=== PATIENT | male | born 1975 | race Caucasian/White ===

== ENCOUNTER 2022-06-09 11:44 | Outpatient (CLI) | payer BC, SELFPAY ==
--- OUTSIDE RECORDS SUMMARY | 2022-06-09 11:54 | XMS_ITS | Encounter Summary ---
:1975 Author Organization [facility] Address [address] [place] [address] Care Team Providers Name Role Phone Unavailable Primary Care Provider Unavailable Encounter Details Date Type Department Care Team Description 12/04/2011 Hospital Encounter HX [facility] Carlos Velasco M.D. [address], [place] [address] (Wo rk) Social History Tobacco Use Types Packs/Day Years Used Date Smoking Tobacco: Never Assessed Sex Assigned at Date Recorded Not on file documented as of this encounter Plan of Treatment Not on filedocumented as of this encounter Procedures Procedure Name Priority Date/Time Associated Comments Diagnosis HX DRUG SCREEN Routine 12/04/2011 9:41 AM Results for this COLLECTION CDT procedure are i n the results section. documented in this encounter Results HX DRUG SCREEN COLLECTION (12/04/2011 9:41 AM CDT) [facility] Method Time Signature HXU Drug See Report POWERCHART Screen Specimen (Source) Anatomical Collection Method Collection Time Re ceived Time Location / / Volume Laterality Urine 12/04/2011 9:41 AM CDT Carlos Velasco M.D. LAB HISTORICAL ORDERS Performing Organization Address City/State/ZIP Code Phon e Number POWERCHART documented in this encounter Visit Diagnoses Not on filedocumented in this encounter
--- OUTSIDE RECORDS SUMMARY | 2022-06-09 11:54 | XMS_ITS | Clinical Summary ---
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 Resolved Problems Problem Noted Date Resolved Date Tear of left acetabular labrum 09/28/2017 9 Left hip impingement syndrome 09/28/2017 09/01/2018 Immunizations Name Administration Dates Next Due AMB Influenza, IIV3 (Age >=3 years)(Flu 06/14/2013, 06/07/20 10, 06/01/2009 Clinic Only) HepA-HepB (Twinrix) 05/02/2015, 11/26/2014, 10/22/2014 Influenza, IIV3 (Age >=3 years) 08/04/2012, 07/31/2011, 06/16 Influenza, IIV4 07/01/2018, 07/14/2016, 05/02/2015 Influenza, IIV4 (=>6mos) MDV 07/20/2017 Pneumococcal conj 13-Valent (Prevnar 13) 07/20/2017 Tdap 05/02/2015, 10/14/2005 Family History Medical History Relation Name Comments Good Health Daughter Diabetes Father Hyperlipidemia Father Hypertension Father Diabetes Maternal Grandmother Cancer-colon Mother Relation Name Status Comments Daughter Alive Father Alive Maternal Grandmother Mother Social History Tobacco Use Types Packs/Day Years Used Date Former Smoker Cigarettes 1 15 Smokeless Tobacco: Never Used Tobacco Cessation: Counseling Given: Yes Comments: 05/23 Alcohol Use Standard Drinks/Week Comments No 0 (1 standard drink = 0.6 oz pure alcoho l) x2 drinks a day Alcohol Habits Answer Date Recorded How often do you have a drink containing alcohol? Not asked How many drinks containing alcohol do you have on a Not aske d typical day when you are drinking? How often do you have six or more drinks on one Not asked occasion? Comment: x2 drinks a day 07/01/2018 Sex Assigned at Date Recorded Not on file Obstetrics History Last Filed Vital Signs Vital Sign Reading Time Taken Comments Blood Pressure 149/87 07/22/2018 2:12 PM ISOTOPE HYDROLOGIST Pulse 67 07/22/2018 2:12 PM ISOTOPE HYDROLOGIST Temperature 35.7 ??C (96.2 ??F) 07/22/2018 12:37 PM ISOTOPE HYDROLOGIST Respiratory Rate 16 07/22/2018 2:12 PM ISOTOPE HYDROLOGIST Oxygen Saturation 99% 07/22/2018 2:12 PM ISOTOPE HYDROLOGIST Inhaled Oxygen Concentration - - Weight 122.9 kg (271 lb) 07/22/2018 6:41 AM ISOTOPE HYDROLOGIST Height 177.8 cm (5' 10) 07/22/2018 6:41 AM ISOTOPE HYDROLOGIST Body Mass Index 38.88 07/22/2018 6:41 AM ISOTOPE HYDROLOGIST Plan of Treatment Health Maintenance Due Date Last Done Comments COVID-19 vaccine series (#1) 1975 Hepatitis C screening for age 0703/06/1994 18-79 Depression screening for age 12+ 08/30/2018 08/30/2017 BMI (ht and wt on same day) for 07/01/2019 07/01/2018, 09/16, age 18+ 09/20/2017, Additional history exists Colonoscopy through age 75 2021 Lipids for age 45-75 2021 06/29/2008 Influenza for age 9-49 04/16/2022 07/01/2018, 07/20/2017, 07/14/2016, Additional history exists Tetanus booster 05/02/2025 05/02/2015, 11/12/2009 (Completed outside of [facility]), 10/14/2005 Tdap Completed 05/02/2015, 10/14/2005 Medical Devices Implanted Type Area Doweling Machine Operator Device Shelf Model / Identifier Expiration Date Ser ial / Lot Ancr Sut [place] Tt - [id number] Left: Hip [place] 06/26/2021 [id number] / Implanted: Qty: 3 on 07/22/2018 by Marvin Quiroz MD at [facility] [employer] / [id number] Results Not on filefrom Last 3 Months Insurance Payer Benefit Plan / Subscriber ID Effective Dates Phone Addre ss Type Group BLUE CROSS BLUE CROSS OF [id number] 2020-Pres [id number] [place] [address] Advance Directives Latest Code Status on File Code Status Date Activated Date Inactivated Comments Full Code 07/22/2018 6:11 AM 07/22/2018 4:52 PM Full Code 07/03/2008 4:15 PM 07/04/2008 2:46 PM Care Teams Farmworker [employer] Relationship Specialty Start Date End Date Puneet Francois MD PCP - General 04/19/08
--- OUTSIDE RECORDS SUMMARY | 2022-06-09 11:54 | XMS_ITS | Encounter Summary ---
:1975 Author Organization [facility] Address [address] [place] [address] Care Team Providers Name Role Phone Unavailable Primary Care Provider Unavailable Encounter Details Date Type Department Care Team Description 10/20/2010 Hospital Encounter HX NO MAPPING Vic Tillman M.D. [address] [place] [address] (Wo rk) Social History Tobacco Use Types Packs/Day Years Used Date Smoking Tobacco: Never Assessed Sex Assigned at Date Recorded Not on file documented as of this encounter Plan of Treatment Not on filedocumented as of this encounter Visit Diagnoses Not on filedocumented in this encounter
--- OUTSIDE RECORDS SUMMARY | 2022-06-09 11:54 | XMS_ITS | Encounter Summary ---
:1975 Author Organization [facility] Address [address] [place] [address] Care Team Providers Name Role Phone Unavailable Primary Care Provider Unavailable Encounter Details Date Type Department Care Team Description 09/21/2010 Hospital Encounter HX NO MAPPING Vic Tillman M.D. [address] [place] [address] (Wo rk) Social History Tobacco Use Types Packs/Day Years Used Date Smoking Tobacco: Never Assessed Sex Assigned at Date Recorded Not on file documented as of this encounter Plan of Treatment Not on filedocumented as of this encounter Visit Diagnoses Not on filedocumented in this encounter
--- OUTSIDE RECORDS SUMMARY | 2022-06-09 11:54 | XMS_ITS | Encounter Summary ---
:1975 [address] [facility] Address [address] [place] [address] Care Team Providers Name Role Phone Unavailable Primary Care Provider Unavailable Encounter Details Date Type Department Care Team Description 12/10/2006 Hospital [facility] Abena Garcia M.D. [address] [place], [place] [address] (Wo rk) Social History Tobacco Use Types Packs/Day Years Used Date Smoking Tobacco: Never Assessed Sex Assigned at Date Recorded Not on file documented as of this encounter Plan of Treatment Not on filedocumented as of this encounter Visit Diagnoses Not on filedocumented in this encounter
--- OUTSIDE RECORDS SUMMARY | 2022-06-09 11:54 | XMS_ITS | Encounter Summary ---
:1975 Author Organization [facility] Address [address] [place] [address] Care Team Providers Name Role Phone Elsewhere, Pcp Primary Care Provider Unavailable Reason for Referral Specialty Diagnoses / Procedures Referred By Contact Refer red To Contact [facility] [place] [facility] [address] [place] [address] Referral ID Status Reason Start Date Expiration Date Visits Requ ested Visits Authorized Encounter Details Date Type Department Care Team Description 11/20/2020 Immunization Department of Kelvin Stewart For COVID-19 Medicine, [place] M.D. Vaccine Immunization Professional Building, [address] (Primary Dx) in [address] [address] [place] [address] [phone] Social History Tobacco Use Types Packs/Day Years Used Date Smoking Tobacco: Former Sex Assigned at Date Recorded Not on file documented as of this encounter Plan of Treatment Scheduled Referrals Name Type Priority Associated Diagnoses Order S chedule Covid immunization Outpatient Referral Routine Encounter For E xpected: office visit Covid-19 Vaccine 12/11/2020, Subsequent; 21 days Immunization Expires: 11/21/2023 documented as of this encounter Visit Diagnoses Diagnosis Encounter For COVID-19 Vaccine Immunizat ion - Primary documented in this encounter Care Teams Commercial Artist Relationship Specialty Start Date End Date Elsewhere, Pcp PCP - General 10/17/18 documented as of this encounter
--- OUTSIDE RECORDS SUMMARY | 2022-06-09 11:54 | XMS_ITS | Encounter Summary ---
:1975 Author Organization [facility] Address [address] [place] [address] Care Team Providers Name Role Phone Unavailable Primary Care Provider Unavailable Encounter Details Date Type Department Care Team Description 12/16/2006 [facility] M.[facility]. [address] [place], [place] [address] (Wo rk) Social History Tobacco Use Types Packs/Day Years Used Date Smoking Tobacco: Never Assessed Sex Assigned at Date Recorded Not on file documented as of this encounter Plan of Treatment Not on filedocumented as of this encounter Visit Diagnoses Not on filedocumented in this encounter
--- OUTSIDE RECORDS SUMMARY | 2022-06-09 11:54 | XMS_ITS | Encounter Summary ---
:1975 Author Organization [facility] Address [address] [place] [address] Care Team Providers Name Role Phone Unavailable Primary Care Provider Unavailable Encounter Details Date Type Department Care Team Description 03/08/2006 Hospital Encounter [facility] [address] [place] [address] (Wo rk) Social History Tobacco Use Types Packs/Day Years Used Date Smoking Tobacco: Never Assessed Sex Assigned at Date Recorded Not on file documented as of this encounter Plan of Treatment Not on filedocumented as of this encounter Visit Diagnoses Not on filedocumented in this encounter
--- OUTSIDE RECORDS SUMMARY | 2022-06-09 11:54 | XMS_ITS | Encounter Summary ---
:1975 Author Organization [facility] Address [address] [place] [address] Care Team Providers Name Role Phone Unavailable Primary Care Provider Unavailable Encounter Details Date Type Department Care Team Description 03/10/2012 Hospital Encounter [facility]X [facility] Carlos Velasco M.D. [address] [place] [address] (Wo rk) Social History Tobacco Use Types Packs/Day Years Used Date Smoking Tobacco: Never Assessed Sex Assigned at Date Recorded Not on file documented as of this encounter Plan of Treatment Not on filedocumented as of this encounter Procedures Procedure Name Priority Date/Time Associated Diagnosis Comme nts HXDRUG COLLECTION, Routine 03/10/2012 4:16 PM Res ults for this URINE CDT procedure are i n the results section. documented in this encounter Results HXDRUG COLLECTION, URINE (03/10/2012 4:16 PM CDT) [facility] gist Method Time Signature HXU Drug See Report POWERCHART Screen Specimen (Source) Anatomical Collection Method Collection Time Re ceived Time Location / / Volume Laterality Urine 03/10/2012 4:16 PM CDT Carlos Velasco M.D. LAB HISTORICAL ORDERS Performing Organization Address City/State/ZIP Code Phon e Number POWERCHART documented in this encounter Visit Diagnoses Not on filedocumented in this encounter
--- OUTSIDE RECORDS SUMMARY | 2022-06-09 11:54 | XMS_ITS | Encounter Summary ---
:1975 Author Organization [facility] Address [address] [place] [address] Care Team Providers Name Role Phone Unavailable Primary Care Provider Unavailable Encounter Details Date Type Department Care Team Description 06/08/2013 Hospital Encounter HX [facility] Mable Stovall ra, M.D., M.P.H. [address] [place] [phone] (Wo rk) Social History Tobacco Use Types Packs/Day Years Used Date Smoking Tobacco: Never Assessed Sex Assigned at Date Recorded Not on file documented as of this encounter Last Filed Vital Signs Vital Sign Reading Time Taken Comments Blood Pressure 122/60 06/08/2013 8:23 AM CDT Pulse 84 06/08/2013 8:23 AM CDT Temperature - - Respiratory Rate 18 06/08/2013 8:23 AM CDT Oxygen Saturation - - Inhaled Oxygen Concentration - - Weight 109 kg (239 lb 13.8 oz) 06/08/2013 8:23 AM CDT Height 180 cm (5' 10.87) 06/08/2013 8:23 AM CDT Body Mass Index 33.58 06/08/2013 8:23 AM CDT documented in this encounter Progress Notes Tara Stovall M.D., M.P.H. 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 EMPLOYER: [employer]. DATE OF INJURY: 05/23/2013 HISTORY OF PRESENT ILLNESS Mr. Courtney returns today for reevaluation of his injury to his left low back and buttock, which was producing symptoms of sciatica on his last clinic visit dated 05/25/2013. He states that since his last visit, his pain has almost completely resolved, and he feels that he is back to his baseline. He continues to have some occasional pain in his low back but states that this is not increased compared to his back pain prior to this most recent injury. Of note, Mr. Courtney does have a history of an L4-L5 diskectomy in 2007 due to disk herniation at this level. He states that since that time, he has hadchronic fluctuating low back pain and does do daily stretches. He presented to physical therapy for 1 visit, where he was evaluated and given additional stretches to do at home. He states that he has added these to his morning routine. He completed his burst and taper of prednisone approximately 3 days ago and feels that this significantly helped with his pain. His pain has not recurred since stopping this medication. He is not currently taking Flexeril as he felt that this made him too relaxed at night, and he was concerned that it was affecting his electrolyte levels. He is not taking any scheduled pain medication, however, states that last night, he did take 1 oxycodone as he overdid it at work. He reports that he has been doing his full job at work for the last 2 days as he feels that he isback to his normal self. Today, he desires to be released to return to full duty. He does question whether it would benefit him to wear a back brace and states that the question was posed from his workplace. He reports that after his previous surgery, he did have a discussion with the neurosurgeon about the use of a back brace, and the neurosurgeon discouraged the use of back brace as it causes the patient not to rely on their own muscle strength and actually causes decrease in muscle strength over time. He states, for that reason, he is nervous about wearing a back brace and wanted my input into this as well. Today, Mr. Courtney denies any numbness or tingling in his left leg or foot as was presentin his last visit. He states that the pain in his posterior leg is completely gone. He now reports mild pain in his left anterior leg, however, reports that this is not any different than his normal daily aches and pains due to his work. VITAL SIGNS Today, heart rate is 84, respirations 18, blood pressure 122/60, weight 108 kg, height 180 cm, BMI 33.58. PHYSICAL EXAMINATION GENERAL: Alert, oriented, pleasant man in no acute distress. SKIN: Evaluation of low back and legs shows no deformity, erythema, ecchymosis, or other skin abnormality. Patient does have a midline scar over the lumbar spine, well healed from his previous surgery. MUSCULOSKELETAL: Has 5/5 strength with knee flexion/extension, ankle dorsi- and plantar flexion, andextension of the great toe bilaterally. Patient is able to walk with normal tandem gait without ataxia. Single-leg stance is normal without hip drop on either side. BACK: Patient has full flexion and extension of the back without pain with these maneuvers. Percussion over the thoracic and lumbar spine does not produce any pain. Deep palpation over the lumbar paraspinal musculature bilaterally, as well as the gluteal musculature does not produce any pain. NEUROLOGIC: Has 2+ patellar and Achilles reflexes bilaterally. Equal sensation to light touch over the lower legs and feet bilaterally. IMPRESSION/REPORT/PLAN A 38-year-old employee for [employer] with resolved left gluteal muscle strain that had resulted in symptoms of sciatic. Based on the patient's rapid response to conservative care,that does reinforce that this injury was solely musculoskeletal and is not concerning for surgical in tervention. I agree with the recommendation of Mr. Courtney's previous surgeon against use of a back brace at this time. This injury was focused on his left gluteal musculature and his buttock rather than his back. It is important for Mr. Courtney to perform his daily exercises for stretching and strengthening of his back, and I feel that a back brace would hinder his normal movement and the muscle strength in his back. PLAN: 1. Mr. Courtney will be discharged from care at today's visit and released to return to work with no restrictions. Should he have recurrent injury, I would be happy to have his work site schedule anothervisit for reevaluation. 2. Encouraged Mr. Courtney to continue his daily stretches as recommended by his previous surgeon and provided in physical therapy during this course of injury care. 3. Encouraged Mr. Courtney to use heat and ice as needed instead of oral medications for pain and, at all times, to use good lifting and body mechanics to prevent further injury. Tara Stovall M.D./pos Electronically Signed By: TARA STOVALL MD On: 06/14/2013 03:11 PM Modified by and Electronically Signed by: TARA STOVALL MD On: 06/14/2013 03:11 PM Source: [facility] MHSDBILLY Document Id: [id number] documented in this encounter Miscellaneous Notes Miscellaneous - Ana Lopez RAlex - 06/08/2013 8:23 AM CDT Adult Radiation Protection Technician Intake/History Document Has Been Updated Adult Radiation Protection Technician Intake/History Entered On: 06/08/2013 8:30 CDT Performed On: 06/08/2013 8:23 CDT by ANA LOPEZ wage conciliator Chief Complaint : s/p back injury Peripheral Pulse Rate : 84 /min Respiratory Rate : 18 /min Heart Rhythm : Regular Systolic Blood Pressure : 122 mmHg Diastolic Blood Pressure : 60 mmHg NIBP Mean : 81 mmHg BP Location : Right upper extremity Height : 180 cm(Converted to: 5 ft 11 inch(es), 70.87 inch(es)) Actual Weight : 108.8 kg(Converted to: 239 lb 14 oz) Weight Source : Standing scale Dosing Weight Clinic : 108.8 kg Clinic BSA : 2.33 Body Mass Index : 33.58 kg/m2 ANA LOPEZ RN - 06/08/2013 8:23 CDT General Info Information Given By : Patient Preferred Communication Mode : Verbal Languages : French ANA LOPEZ RN - 06/08/2013 8:23 CDT Subjective Pain Symptoms : Yes ANA LOPEZ RN - 06/08/2013 8:23 CDT Pain Pain Assessment Grid Pain 1 Pain 2 Location : Upper leg Lower back Laterality : Left Bilateral Intensity : 3 2 Onset : Gradual Gradual Quality : Cramping Aching Pain Radiation : Yes (Comment: Pt. states radiation dependent on daily activity, may radiate throughleg or across. [ANA LOPEZ RN - 06/08/2013 8:23 CDT] ) Aggravating Factors : Movement Movement Alleviating Factors : Rest Rest ANA LOPEZ RN - 06/08/2013 8:23 CDT ANA LOPEZ - 06/08/2013 8:23 CDT Dependent Habits Tobacco Use/Currently Using : No Smoking Status : Former smoker ANA LOPEZ RN - 06/08/2013 8:23 CDT Caffeine Use Grid Caffeine Use : Current Type : Soft drinks, Tea Frequency : Daily Amount : 6 pack ANA LOPEZ - 06/08/2013 8:23 CDT Recreational Drug Use Grid Drug Use : None ANA LOPEZ - 06/08/2013 8:23 CDT Allergy (As Of: 06/08/2013 08:30:39 CDT) Allergies (Active) NKA Estimated Onset Date: Unspecified ; Created By: KIKO HAMMONDS; Reaction Status: Active ; Category: Drug ; Substance: NKA ; Type: Allergy ; Updated By: KIKO HAMMONDS; Reviewed Date: 05/25/2013 15:28CDT Source: [facility] Document Id: [id number] documented in this encounter Plan of Treatment Not on filedocumented as of this encounter Visit Diagnoses Not on filedocumented in this encounter
--- OUTSIDE RECORDS SUMMARY | 2022-06-09 11:54 | XMS_ITS | Encounter Summary ---
:1975 Author Organization [facility] Address [address] [place] [address] Care Team Providers Name Role Phone Unavailable Primary Care Provider Unavailable Encounter Details Date Type Department Care Team Description 11/14/2003 Hospital [facility] Abena Garcia M.D. [address] [place], [place] [address] (Wo rk) Social History Tobacco Use Types Packs/Day Years Used Date Smoking Tobacco: Never Assessed Sex Assigned at Date Recorded Not on file documented as of this encounter Plan of Treatment Not on filedocumented as of this encounter Visit Diagnoses Not on filedocumented in this encounter
--- OUTSIDE RECORDS SUMMARY | 2022-06-09 11:54 | XMS_ITS | Encounter Summary ---
:1975 Author Organization [facility] Address [address] [place] [address] Care Team Providers Name Role Phone Unavailable Primary Care Provider Unavailable Encounter Details Date Type Department Care Team Description 12/29/2010 Hospital Encounter [facility]X [facility] SLE[facility] Vic Iraheta M.D. [address] [place] [address] (Wo rk) Social History Tobacco Use Types Packs/Day Years Used Date Smoking Tobacco: Never Assessed Sex Assigned at Date Recorded Not on file documented as of this encounter Progress Notes Vic Iraheta M.D. - 12/29/2010 12:00 AM CDT [id number] CHIEF COMPLAINT / REASON FOR VISIT Two-month CPAP follow up visit. HISTORY OF PRESENT ILLNESS Mr. Phillips is a 35-year-old patient familiar with the undersigned. He has undergone polysomnographic evaluation, demonstrating mild to moderate REM-dependent obstructive sleep apnea syndrome with a measured apnea-hypopnea index (AHI) of 4.4 per hour, although during REM supine sleep airway instability was measured at 27.6 per hours. In-lab repeat CPAP titration was conducted and accomplished for the patient, titrating to a pressure of 12 cm of water. 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 He is denying problematic pinching, hurting or discomfort at this point in time. Originally, during the first 1 to 2 weeks he was struggling with mask fit issues. With some assistance with the local DME provider this has essentially been resolved. He is currently using a nasal mask with a chin strap. He is not experiencing other problematic issues of pinching, hurting or discomfort at this point in time. He is not experiencing significant air leak. He denies problematic drainage, congestion or sneezing. He will occasionally experience dry mouth despite the chin strap; occasionally that will slip and he is able to open his mouth rarely, per his description and report. He is using a heated humidifier. Bed time/waking time is regular and for the most part adequate. He feels more rested and more refreshed. He feels better the next day. He is feeling generally more alert and awake. His weight had significantly been reduced. His high weight in August of 2010 was 296 pounds. Currently his weight is approximately in the 250 pound range. It actually appears since last being seen in mid October, his weight has been reduced by approximately 15 to 20 pounds. The patient's current Spring sleepiness score has significantly improved from previous of 17 to current of 7. IMPRESSION / REPORT / PLAN 1) Mild to moderately severe REM-dependent obstructive sleep apnea syndrome. The results of the study were again reiterated to the patient. The quality of life and medical ramifications of having his sleep-disordered breathing treated were also reiterated. He appears to have a good understanding of these issues and expressed clear motivation for future CPAP use and adherence. He is planning to have downloading information provided from his DME provider here in the near future and the undersigned will also review this as well. I will leave follow up at this point in time on an as-needed basis. He understands to call or return at any time if questions or concerns would arise into the future. 2) Overweight. The patient's weight continues to decrease, now by approximately 15 to 20 pounds. Current measured weight is approximately 115.6 kg, down from 124.6 kg in mid October. I have encouraged continued efforts at weight loss by means of dietary modification and moderate exercise. If he is getting into the 210 to 220 pound range, possibly at that point in time a repeat screening oximeter study can be done for screening purposes, potentially without CPAP for one night to see what this would demonstrate. ADMINISTRATIVE BILLING Total Time: 25 minutes. Counseling Time: Greater than half spent in counseling and coordination of care. Ben Irhaeta M.D., sks Diplomate, A.B.S.M. 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 Iraheta for CPAP use Ambulatory Intake Additional Information: Things are going well. Temperature Oral: 36.5C(Converted to: 97.7DegF) Peripheral Pulse Rate: 68/min Respiratory Rate: 16/min Systolic Blood Pressure: 122mmHg Diastolic Blood Pressure: 68mmHg NIBP Mean: 86mmHg BP Location: Left upper extremity Height: 179.00cm(Converted to: 5ft 10in, 70.47in) Actual Weight: 115.600kg(Converted to: 254lb 14oz) Dosing Weight Clinic: 115.60kg Clinic BSA: 2.40 Body Mass Index: 36.08kg/m2 KIKO HAMMONDS - 12/29/2010 9:19 CDT Subjective Pain Symptoms: No KIKO HAMMONDS - 12/29/2010 9:19 CDT Dependent Habits Tobacco Use/Currently Using: No Alcohol Use: No KIKO HAMMONDS - 12/29/2010 9:19 CDT Caffeine Use Grid Caffeine Use: Current Type: Soft drinks, Tea Frequency: Daily Amount: 1 can/4 cups KIKO HAMMONDS - 12/29/2010 9:19 CDT Allergy Allergies (Active) NKA Estimated Onset Date: Unspecified ; Created By: KIKO HAMMONDS; Reaction Status: Active ; Category: Drug ; Substance: NKA ; Type: Allergy ; Updated By: KIKO HAMMONDS; Reviewed Date: 12/29/2010 9:11 CDT Source: [facility] POWERCHART Document Id: [id number] CDT!27 Erikacellneida - Vic Iraheta M.D. - 12/29/2010 9:08 AM CDT Ambulatory Patient Summary [facility] [address] [place] [id number] Visit Information Name: JOSE DE JESUS PIHLLIPS Current Date: 12/29/2010 09:08:14 Primary Care Provider: PCP, ELSEWHERE Your Medications Here is a list of your medications. It is important to take your medications as directed. Use a pillbox or chart to help remind you to take your medications. Please let your doctor or nurse know if you have problems taking your medications. Medication/Strength Dose Route Frequency Indications/Special Instructions/Comments Misc Prescription (Misc Prescription) 1 tab(s) two times a day multivitamin (multivitamin) once a day cholecalciferol (Vitamin D3) 1 tab(s) once a day calcium-vitamin D (Calcium 600+D) 1 tab(s) once a day omega-3 polyunsaturated fatty acids (Fish Oil) 1 tab(s) once a day ibuprofen (ibuprofen) 4 tab(s) Oral as needed for pain melatonin (Melatonin 5 mg oral tablet) 10 mg Oral once a day (at bedtime) as needed for insomnia Your Allergies & Intolerances Substance Reaction Symptoms Category Comments NKA Drug Your Problem List Problem Status Onset Comments No Problems found Your Recommendations We want to make sure you get the tests, immunizations, and guidance you need to stay healthy. Here is a customized list of recommendations, based on information we have in your medical record. Your doctor may have additional recommendations for you, based on your personal medical history and risk factors. You can help us by calling us to make an appointment when you are due for your tests. Additional information regarding recommendations: Test/Treatment Last Done Next Due Additional Information Lipid Panel every 5 years Age 20-75 11/14/2003 11/12/2008 Checks blood for good (HDL) and bad (LDL) cholesterol. Know your numbers, they are one indicator of your risk for heart attack and stroke. Vaccine: Tetanus every 10 years 11/14/2003 11/11/2013 Immunization to help prevent you from getting the serious disease Tetanus (Lockjaw). Your Upcoming Appointments Date Time Location Reason Provider No Appointments found Your Goals/Additional instructions: Source: [employer] Document Id: [id number] Miscellaneous - Vic Iraheta M.D. - 12/29/2010 9:08 AM CDT Ambulatory Depart Summary [address] [address] Visit Information Name: JACQUELINEJOSE DE JESUS Current Date: 12/29/2010 09:08:13 Primary Care Provider: PCP, ELSEWHERE JACQUELINE JOSE DE JESUS VELASCO has been given the following list of medications: Your Medications It is important to take your medications as directed. Use a pill box or chart to help remind you to take your medications. Please let your doctor or nurse know if you have problems taking your medications. Medication/Strength Dose Route Frequency Indications/Special Instructions/Comments Misc Prescription (Misc Prescription) 1 tab(s) two times a day multivitamin (multivitamin) once a day cholecalciferol (Vitamin D3) 1 tab(s) once a day calcium-vitamin D (Calcium 600+D) 1 tab(s) once a day omega-3 polyunsaturated fatty acids (Fish Oil) 1 tab(s) once a day ibuprofen (ibuprofen) 4 tab(s) Oral as needed for pain melatonin (Melatonin 5 mg oral tablet) 10 mg Oral once a day (at bedtime) as needed for insomnia Additional Information: Yes - Current list of reconciled medications is provided and explained to the patient and/or family, guardian/caregiver. Source: [employer] Document Id: [id number] documented in this encounter Plan of Treatment Not on filedocumented as of this encounter Visit Diagnoses Not on filedocumented in this encounter
--- OUTSIDE RECORDS SUMMARY | 2022-06-09 11:54 | XMS_ITS | Encounter Summary ---
:1975 Author Organization [facility] Address [address] [place] [address] Care Team Providers Name Role Phone Unavailable Primary Care Provider Unavailable Encounter Details Date Type Department Care Team Description 05/25/2013 Hospital Encounter HX [facility] OCCUP MED Mable Stovall ra, M.D., M.P.H. [address] [place] [phone] (Wo rk) Social History Tobacco Use Types Packs/Day Years Used Date Smoking Tobacco: Never Assessed Sex Assigned at Date Recorded Not on file documented as of this encounter Last Filed Vital Signs Vital Sign Reading Time Taken Comments Blood Pressure 132/88 05/25/2013 3:34 PM CDT Pulse 80 05/25/2013 3:34 PM CDT Temperature - - Respiratory Rate - - Oxygen Saturation - - Inhaled Oxygen Concentration - - Weight 107 kg (235 lb 0.2 oz) 05/25/2013 3:34 PM CDT Height 179.5 cm (5' 10.67) 05/25/2013 3:34 PM CDT Body Mass Index 33.09 05/25/2013 3:34 PM CDT documented in this encounter H&P Notes Tara Stovall M.D., M.P.H. - 05/25/2013 3:08 PM CDT [id number] WORK COMP CLINIC DATE OF INJURY 05/23/2013. EMPLOYER: [employer]. CHIEF COMPLAINT/REASON FOR VISIT Low back pain and left leg numbness. HISTORY OF PRESENT ILLNESS Mr. Courtney is a 38-year-old employee of [employer]. 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 He states that during this work he did not experience any increase in pain, did not have an acute event where he fell or was impacted by anything, and did not have an acute event where he felt sudden pain. He then at 11 a.m. got into the truck that they use for watering and he said that he, at that time, had very gradual onset of left low back pain to the point that at 5 p.m. when he finished his day, his left low back pain was constant and severe to the point that he was d riving with his fist between his left low back and the seat to relieve the pain. He states that whenhe arrived home, took a hot bath and took 2 Tylenol #3 that he had left over from a previous surgery. He did not feel that the Tylenol #3 touched the pain at all. Yesterday on 05/24, he presented to [facility], and during that visit was given work restrictions, medications including Flexeril 10 mg h.s., oxycodone 5 mg, one cap by mouth every 4 hours as neededfor pain, and a prednisone burst and taper, starting at 40 mg and decreasing over a period of 10 days. An MRI of the lumbar spine with and without contrast was also ordered due to concern of lumbar disc herniation. Mr. Courtney reports that 5 years ago he had a L4-L5 diskectomy due to disk herniation onthe right side. When he occasionally has pain it is typically on the right side and not the left. Today he reports that he has fairly constant pain in his left low back, which is improved with movement. He also has pain shooting down the posterior aspect of the left leg and the lateral aspect of the left lower leg. He reports that his left foot is somewhat numb. He is currently taking medications as prescribed above. PAST MEDICAL/SURGICAL HISTORY 1. Right L4-L5 diskectomy 5 years ago. 2. Vasectomy. MEDICATIONS Oxycodone every 4 hours 5 mg as needed. Flexeril 5-10 mg h.s. Prednisone burst and taper starting at 40 mg per day and tapering over 10 days. Zyrtec. SYSTEMS REVIEW Included on the paper sheet included in the patient's chart. PHYSICAL EXAMINATION GENERAL: Alert, oriented man in moderate distress, in an awkward position, sitting on the couch withhis left knee pulled to his body. MUSCULOSKELETAL: The patient stands slowly, but is able to extend his back to a full upright position. Palpation of the spinus processes does not produce any pain. The patient has pain to palpation over the left gluteus musculature. Deep palpation over this area elicits increased shooting pain down the back of his posterior left leg. The patient is able to flex and extend at the waist without increase in pain. The patient is able to bend laterally to the left and right without increase in pain. The patient has slightly antalgic gait, favoring the right side he states secondary to numbness in his left foot. Straight leg raise is positive on the left with shooting pain down the posterior thigh. However the patient states that this shooting pain is constant at present, so he is not certain how much increase this is; 5/5 strength with knee flexion, extension, ankle dorsi and plantar flexion, extension of the big toe, and flexion of the hips bilaterally. He has 2+ patellar and Achilles reflexes bilaterally. IMPRESSION/REPORT/PLAN A 38-year-old male with overuse muscle injury, most likely representing a muscle strain of the left lumbar and gluteal musculature. The patient was counseled that when these muscles are inflamed it canproduce symptoms of sciatic pain, as the sciatic nerve runs through this musculature. Due to the absence of any specific inciting acute injury, or acute impact event, the likelihood that these symptomsare a result of a herniated disk is reduced. It was discussed with Mr. Courtney that an MRI would not be appropriate for this injury as anything that was found, such as a herniated disk would be incidental and not work related. The mechanism of this injury with overuse followed by gradual onset of pain while sitting is very characteristic of musculoskeletal pain. It is very likely that this pain will resolve completely with conservative treatment. PLAN: 1. We will order physical therapy twice weekly starting in 3 days as the patient is too acutely tender to commence physical therapy currently. An appointment was made for the patient for PT on Wednesday, 05/29. 2. The patient was counseled to continue and fully complete his prednisone burst and taper prescribed by the physician, Arturo Mills at [facility]. 3. The patient should continue Flexeril 10 mg h.s. 4. Patient to continue the oxycodone that was prescribed by [facility] as needed every 4 hours, 5mg. 5. The patient was counseled that he is not to take any sedating medications within the 10 hours prior to going to work or during his work day. This would include oxycodone, Flexeril and the Tylenol 3sthat he had from his previous injury. 6. He was counseled to continue moderate activity and avoid complete bedrest 7. He can heat or ice as needed for comfort. 8. Follow up in 2 weeks for re-evaluation. Tara Stovall M.D./pos Electronically Signed By: TARA STOVALL MD On: 06/05/2013 12:06 PM Modified by and Electronically Signed by: TARA STOVALL MD On: 06/05/2013 12:06 PM Source: [facility] MHSDOLBEYNONRADSYS Document Id: [id number] documented in this encounter Miscellaneous Notes Miscellaneous - Conversion, Historical Provider Ser - 05/25/2013 3:34 PM CDT Adult Chart Calculator Intake/History Adult Chart Calculator Intake/History Entered On: 05/25/2013 15:36 CDT Performed On: 05/25/2013 15:34 CDT by [facility] Intake Peripheral Pulse Rate : 80 /min Heart Rhythm : Regular Systolic Blood Pressure : 132 mmHg Diastolic Blood Pressure : 88 mmHg NIBP Mean : 103 mmHg BP Location : Right upper extremity Blood Pressure Cuff Size : Regular Height : 179.5 cm(Converted to: 5 ft 11 inch(es), 70.67 inch(es)) Actual Weight : 106.6 kg(Converted to: 235 lb 0 oz) Weight Source : Standing scale Dosing Weight Clinic : 106.6 kg Clinic BSA : 2.31 Body Mass Index : 33.08 kg/m2 [facility] - 05/25/2013 15:36 CDT Chief Complaint : Low back pain - Work Comp [facility] - 05/25/2013 15:34 CDT General Info Information Given By : Patient Preferred Communication Mode : Verbal Languages : Amharic [facility] - 05/25/2013 15:34 CDT Subjective Pain Symptoms : Yes Injury : Work related EMERITAANA Villanueva [facility] 05/25/2013 15:34 CDT Pain Pain Assessment Grid Pain 1 Location : Lower back Laterality : Left Intensity : 8 Quality : Aching, Burning, Cramping, Pressure, Sharp, Tightness, Other: tingling, numbness, muscle spasms EMERITA ANA [facility] 05/25/2013 15:34 CDT Dependent Habits Tobacco Use/Currently Using : No Tobacco Use/Advised to Quit : No Smoking Status : Former smoker Alcohol Use : Yes [facility] 05/25/2013 15:34 CDT Caffeine Use Grid Caffeine Use : Current Type : Soft drinks, Tea Frequency : Daily Amount : 6 pack [facility] 05/25/2013 15:34 CDT Recreational Drug Use Grid Drug Use : None [facility] 05/25/2013 15:34 CDT Source: [facility] Document Id: [id number] CDT!15 documented in this encounter Plan of Treatment Not on filedocumented as of this encounter Visit Diagnoses Not on filedocumented in this encounter
--- OUTSIDE RECORDS SUMMARY | 2022-06-09 11:54 | XMS_ITS | Encounter Summary ---
:1975 Author Organization [facility] Address [address] [place] [address] Care Team Providers Name Role Phone Unavailable Primary Care Provider Unavailable Encounter Details Date Type Department Care Team Description 01/23/2011 Hospital Encounter [facility]X [facility] MAMaureen Bajwa A PRN, C.N.P., [place], R.N. Social History Tobacco Use Types Packs/Day Years Used Date Smoking Tobacco: Never Assessed Sex Assigned at Date Recorded Not on file documented as of this encounter Plan of Treatment Not on filedocumented as of this encounter Visit Diagnoses Not on filedocumented in this encounter
--- OUTSIDE RECORDS SUMMARY | 2022-06-09 11:54 | XMS_ITS | Encounter Summary ---
:1975 Author Organization [facility] Address [address] [place] [address] Care Team Providers Name Role Phone Unavailable Primary Care Provider Unavailable Encounter Details Date Type Department Care Team Description 10/27/2010 Hospital Encounter [facility]X [facility] SLEEP CLI Vic Iraheta M.D. [address] [place] [id number] (Wo rk) Social History Tobacco Use Types Packs/Day Years Used Date Smoking Tobacco: Never Assessed Sex Assigned at Date Recorded Not on file documented as of this encounter Consult Notes Vic Iraheta M.D. - 10/27/2010 12:00 AM CDT [id number] CHIEF COMPLAINT / REASON FOR VISIT Post sleep study report consultation visit. HISTORY OF PRESENT ILLNESS Mr. Phillips is a 35-year-old gentleman not previously seen by the undersigned. He has undergone previous diagnostic and subsequent therapeutic CPAP titration study. He demonstrates mild to moderately severe REM dependent obstructive sleep apnea syndrome with a measured apnea-hypopnea index (AHI) of approximately 5 per hour with a measured airway instability during REM supine sleep at 27.6 per hour. Overall measured apnea-hypopnea index (AHI) was at 4.4 per hour. In-lab repeat CPAP titration was conducted with a titration of 12 cm of water, which did appear to be sufficient and adequate for airway stabilization and elimination of snoring and improvements of oxyhemoglobin stability and saturations. He felt he slept tremendously well with the CPAP and felt much more rested and refreshed after that night's study. Prior to evaluation, he was describing himself as a loud and disruptive snorer, per his spouse's reports primarily. There was witnessed apneic episodes. He was having snore awakenings. He was problematic sleepy and tired. Current [place] Sleepiness Score totals 17. Adult history dated 10/27/2010 was reviewed. CURRENT MEDICATIONS Reviewed and no changes per EMR. ALLERGIES Reviewed and no changes per EMR. SYSTEMS REVIEW The patient denies symptoms consistent with narcolepsy. He denies symptoms of restless legs. PAST MEDICAL / SURGICAL HISTORY 1) Obesity. SOCIAL HISTORY The patient is . They reside in the [facility]. It is he and his spouse and two children. He quit smoking approximately 2-1/2 years ago. He denies occasional alcohol. FAMILY HISTORY Pertinent for his father with diagnosed sleep apnea. VITAL SIGNS HEIGHT: 179 cm WEIGHT: 124.6 kg BMI: 39 BLOOD PRESSURE: 122/78 PHYSICAL EXAM EYES: Conjunctivae and lids are normal. Pupils and irises are normal. ENT: Oropharynx demonstrates mild to mildly moderate upper airway crowding. Tongue base is enlarged. Soft palatal tissue has a draping quality, not significantly redundant. Uvula is mildly elongated. Hard palate is mild to moderately high arched. There is no significant posterior crossbite or overjet. Nasal mucosa is intact. External narrowing on the left. Neck size is 45 cm. LUNGS: Clear to auscultation bilaterally. HEART: S1, S2. No rubs, murmurs, or gallops appreciated. LYMPH NODES: No significant lower extremity edema is present. EXTREMITIES: Gross motor strength of the upper and lower extremities is grossly intact. GAIT: Within normal limits. MENTAL: Affect reactive and mood congruent. Judgment, insight, and motivation are within normal limits. IMPRESSION / REPORT / PLAN 1) Mild to moderately severe REM dependent obstructive sleep apnea syndrome. The results of the study were thoroughly discussed with the patient and patient's spouse. I have encouraged a CPAP trial at 12 cm of water pressure. The rationale, risks, and benefits of this were thoroughly discussed and patient education material was also provided. I will plan to see the patient back within 2 months' time. He understands to call or return at any time if questions or concerns would arise prior to now and our next scheduled appointment. He also understands to utilize his DME provider for troubleshooting assistance as well when and if needs would arise. 2) Overweight. The patient's weight of 124.6 kg results in a body mass index of 39. Issues of weight as it correlates with sleep disordered breathing were briefly discussed with him today as well. I have encouraged concerted efforts of weight loss by means of dietary modification and moderate exercise, if at all possible. He does describe that he and his spouse have been engaging in concerted efforts at weight loss and he estimates that he has been able to lose approximately 28 pounds since August of this year. FINAL DIAGNOSES 1) Mild to moderately severe REM dependent obstructive sleep apnea syndrome. 2) Overweight. Thank you Dr. Francois for the referral of this patient. I appreciate participating in your patient's care. Ben Iraheta M.D., celeste DiplomateRoel cc: Puneet Francois M.D. [address] [phone] Electronically Signed By: BEN IRAHETA MD On: 11/24/2010 09:25 Source: [facility] MHSDOLBEYNONRADSYS Document Id: [id number] documented in this encounter Miscellaneous Notes Miscellaneous - Vic Iraheta M.D. - 10/27/2010 9:02 AM CDT Ambulatory Patient Summary [address] [address] Visit Information Name: JOSE DE JESUS PHILLIPS Current Date: 10/27/2010 09:02:22 Primary Care Provider: PCP, ELSEWHERE Your Medications [...] No Appointments found Your Goals/Additional instructions: Source: [facility] POWERCHART Document Id: [id number] Electronically signed by Miya, [facility] Belt Line [employer]eder [id number] at 01/17/2017 5:48 PM CDT Erikacellneida - Vic Iraheta M.D. - 10/27/2010 9:02 AM CDT Ambulatory Depart Summary [address] [address] Visit Information Name: JOSE DE JESUS PHILLIPS Current Date: 10/27/2010 09:02:21 Primary Care Provider: PCP, ELSEWHERE JOSE DE JESUS PHILLIPS has been given the following list of [...] to the patient and/or family, guardian/caregiver. Source: [facility] POWERCHART Document Id: [id number] Electronically signed by Miya [facility] Belt Line Feeder [id number] at 01/17/2017 5:48 PM CDT Miscellaneous - Conversion, Historical Provider Ser - 10/27/2010 8:21 AM CDT Adult Methodologist Intake/History Adult Methodologist Intake/History Entered On: 10/27/2010 8:26 CDT Performed On: 10/27/2010 8:21 CDT by KIKO HAMMONDS Intake Chief Complaint: Review sleep study results with Dr. Iraheta ordered by Dr. Mcarthur Ambulatory Intake Additional Information: Couldn't stay awake any more on two tablets. Exhausted even if he slept 12 hours. Snores. May have episodes of stop breathing. Temperature Oral: 36.3C(Converted to: 97.3DegF) Peripheral Pulse Rate: 60/min Respiratory Rate: 16/min Systolic Blood Pressure: 122mmHg Diastolic Blood Pressure: 78mmHg NIBP Mean: 93mmHg BP Location: Left upper extremity Height: 179.00cm(Converted to: 5ft 10in, 70.47in) Actual Weight: 124.600kg(Converted to: 274lb 11oz) Dosing Weight Clinic: 124.60kg Clinic BSA: 2.49 Body Mass Index: 39kg/m2 KIKO HAMMONDS - 10/27/2010 8:21 CDT Subjective Pain Symptoms: No KIKO HAMMONDS - 10/27/2010 8:21 CDT Dependent Habits Tobacco Use/Currently Using: No Alcohol Use: No KIKO HAMMONDS - 10/27/2010 8:21 CDT Caffeine Use Grid Caffeine Use: Current Type: Soft drinks, Tea Frequency: Daily Amount: 1 can/4 cups KIKO HAMMONDS - 10/27/2010 8:21 CDT Allergies Allergies (Active) NKA Estimated Onset Date: Unspecified ; Created By: KIKO HAMMONDS; Reaction Status: Active ; Category: Drug ; Substance: NKA ; Type: Allergy ; Updated By: KIKO HAMMONDS; Reviewed Date: 10/27/2010 8:12 CDT Source: [facility] [employer] Document Id: [id number] documented in this encounter Plan of Treatment Not on filedocumented as of this encounter Visit Diagnoses Not on filedocumented in this encounter
--- OUTSIDE RECORDS SUMMARY | 2022-06-09 11:54 | XMS_ITS | Encounter Summary ---
:1975 Author Organization [facility] Address [address] [place] [address] Care Team Providers Name Role Phone Unavailable Primary Care Provider Unavailable Encounter Details Date Type Department Care Team Description 11/25/2001 Hospital [facility]ena Garcia M.D. [address] [place], [place] [address] (Wo rk) Social History Tobacco Use Types Packs/Day Years Used Date Smoking Tobacco: Never Assessed Sex Assigned at Date Recorded Not on file documented as of this encounter Plan of Treatment Not on filedocumented as of this encounter Visit Diagnoses Not on filedocumented in this encounter
--- OUTSIDE RECORDS SUMMARY | 2022-06-09 11:54 | XMS_ITS | Encounter Summary ---
:1975 Author Organization [facility] Address [address] [place] [address] Care Team Providers Name Role Phone Unavailable Primary Care Provider Unavailable Encounter Details Date Type Department Care Team Description 12/02/2006 [facility] [address] [place], [place] [address] (Wo rk) Social History Tobacco Use Types Packs/Day Years Used Date Smoking Tobacco: Never Assessed Sex Assigned at Date Recorded Not on file documented as of this encounter Plan of Treatment Not on filedocumented as of this encounter Visit Diagnoses Not on filedocumented in this encounter
--- OUTSIDE RECORDS SUMMARY | 2022-06-09 11:54 | XMS_ITS | Encounter Summary ---
:1975 Author Organization [facility] Address [address] [place] [address] Care Team Providers Name Role Phone Unavailable Primary Care Provider Unavailable Encounter Details Date Type Department Care Team Description 05/29/2013 - Hospital Encounter [facility]X [facility] TUNG PT Padma Hinojosa, 07/11/2013 MPrashant, M.P.H. [address] [place] [phone] (Wo rk) Social History Tobacco Use Types Packs/Day Years Used Date Smoking Tobacco: Never Assessed Sex Assigned at Date Recorded Not on file documented as of this encounter Plan of Treatment Not on filedocumented as of this encounter Visit Diagnoses Not on filedocumented in this encounter
[2022-06-09 13:48] LABS: Basophils Absolute Auto 0.01 K/uL (0.00-0.30); Basophils Percent Auto 0.1 % (0.0-3.0); Eosinophils Percent Auto 10.2 % (0.0-7.0); Hemoglobin* 14.5 gm/dL (13.5-17.5); Immature Granulocytes Abs Auto 0.07 K/uL (0.00-0.30); Lymphocytes Percent Auto 23.6 % (20-44); Mean Corpuscular HGB Conc 34 gm/dL (32-36); Mean Corpuscular Hemoglobin 32 pg (26-34); Mean Corpuscular Volume 93 fL (80-100); Monocytes Percent Auto 6.7 % (0.0-11.0); Neutrophils Absolute Auto 5.22 K/uL (1.7-7.0); Neutrophils Percent Auto 58.6 % (42.0-72.0); Platelet Count* 213 K/uL (140-440); RDW Coefficient of Variation % 12.9 % (11.5-15.5); Red Blood Count 4.61 m/uL (4.30-5.90); White Blood Count* 8.91 K/uL (4.50-11.00)
[2022-06-09 13:53] LABS: Slide Review Reflex No
[2022-06-09 16:29] LABS: Albumin* 4.4 g/dL (3.3-5.0)
[2022-06-09 16:30] LABS: Chloride* 104 mmol/L (96-114); Potassium* 4.8 mmol/L (3.6-5.1); Sodium* 138 mmol/L (135-149)
[2022-06-09 16:32] LABS: Aspartate Amino Transferase* 28 U/L (12-35); Bilirubin Total* 0.1 mg/dL (0.1-1.5); Carbon Dioxide* 24 mmol/L (20-32); Creatinine* 0.9 mg/dL (0.5-1.5); Estimated Glomerular Filt Rate 107 ml/min; Total Protein* 7.2 g/dL (6.0-8.3)
[2022-06-09 16:33] LABS: Alanine Aminotransferase* 29 U/L (4-50); Alkaline Phosphatase* 73 U/L (40-150); Blood Urea Nitrogen* 17 mg/dL (5-24); Calcium* 8.4 mg/dL (8.4-10.6); Glucose* 87 mg/dL (60-115)
[2022-06-09 16:58] LABS: Troponin I* < 0.01 ng/mL (0.01-0.04)
== END 2022-06-09 11:45 | disposition home or self-care (01) ==
PROVIDERS: PCP Family Medicine; Visit Provider Nurse Practitioner Family
DX: R00.9 Unspecified abnormalities of heart beat (principal); R63.1 Polydipsia; R55 Syncope and collapse; Z13.0 Encounter for screening for diseases of the blood and blood-forming organs and certain disorders involving the immune mechanism
CPT/HCPCS: 36415; 80053; 84443; 84484; 85025

== ENCOUNTER 2023-08-24 09:59 | Outpatient (CLI) | payer BC, SELFPAY ==
--- OUTSIDE RECORDS SUMMARY | 2023-08-24 10:05 | XMS_ITS | Continuity of Care Document ---
Author Name Unknown Organization [facility] Address [address] [place] [address] Phone Care Team Providers Care Byproducts Supervisor Name Role Phone Unavailable Unavailable Unavailable Medications Medication Instructions Dosage Effective Dates (start - stop) Status Comments Percocet 5 mg-325 mg Tab 1-2 tablets every 4-6 hours - Active Procedures Procedure Date Postop followup visit Low back disk surgery/decompress 2007 PA Assist Low back disk surgery/decompre ss Office consultation, moderate-high May- Advance Directives Directive Yes / No Effective Date File Name No Information Encounters Encounter Description Practice Location Reason(s) For Visit Diagnoses Date Provider Providers Copied on Encounter [facility], [address] [facility], [place], [address], [place] tel:[phone] [employer] No Information Jul- 1 No Information [facility], [address] [facility] [address], [place], [address], tel:[phone] [employer] No Information 8 No Information Referring Provider: [facility] [place] [address] [place], [address]. tel:[phone] [facility], [address] [facility] [address], [place], [address], [place] tel:[phone] [facility] No Information Jul- 0 8 No Information Referring Provider: [facility] [place] [address] [place], [address]. tel:[phone] [facility], [address] [address] [address], [place], [address], [place] tel:[phone] [facility] [place] No Information 8 No Information Office consultation , moderate-hig h [facility], [address], [place], [address], [place] tel:[phone] [facility] [place] No Information 8 No Information Referring Provider: Puneet Francois, [facility] [address] [place], [address]. tel:[phone] Family History Family Member Type Diagnosis Age At Onset No Information Payers Payer name Insurance type Covered democrat ID Authorjerri spain(s) [facility] [id number] Social History Type Description Quantity Date Captured Comments Sex Male Smoking Status No Information Chief Complaint And Reason For Visit No Information Reason For Referral Reason For Referral No Information History Of Present Illness Encounter Date Complaint History Of Prese nt Illness No Information Functional Status Date Functional Assessmen t No Information Instructions Date Instruction Additional Infor mation No Information Assessments Type Assessment Date No Information Patient Care Teams Name Effective Dates (start - stop) Status Members No Information
--- OUTSIDE RECORDS SUMMARY | 2023-08-24 10:06 | XMS_ITS | Clinical Summary ---
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 0 Active acetaminophen (TYLENOL ORAL) Take by mouth. 0 Active Active Problems Problem Noted Date Diagnosed Date Tinnitus 11/01/2014 Overview: louder in the left the last couple of years Obesity 10/11/2011 Sensorineural hearing loss, bilateral 10/01/2010 Lumbar disc herniation with radiculopathy 2007 Resolved Problems Problem Noted Date Diagnosed Date Resolved Date Tear of left acetabular labrum 09/28/2017 09/01/2018 Left hip impingement syndrome 09/28/2017 09/01/2018 Immunizations Name Administration Dates Next Due AMB Influenza, IIV3 (Age >=3 years)(Flu Clinic Only) 06/14/2013,06/07/2010,06/01/2009 HepA-HepB (Twinrix) 05/02/2015,11/26/2014,2014 Influenza, IIV3 (Age >=3 years) 08/04/2012,07/31,06/28/2008 Influenza, IIV4 07/01/2018,07/14/2016,05/02/2015 Influenza, IIV4 (=>6mos) MDV 07/20/2017 Pneumococcal conj 13-Valent (Prevnar 13) 017 Tdap 05/02/2015,10/14/2005 Family History Medical History Relation Name Comments Good Health Daughter Diabetes Father Hyperlipidemia Father Hypertension Father Diabetes Maternal Grandmother Cancer-colon Mother Relation Name Status Comments Daughter Alive Father Alive Maternal Grandmother Mother Social History Tobacco Use Types Packs/Day Years Used Date Smoking Tobacco: Former Cigarettes 1 15 Smokeless Tobacco: Never Tobacco Cessation:Counseling Given: Yes Comments:05/23 Alcohol Use Standard Drinks/Week Comments No 0 (1 standard drink = 0.6 oz pur e alcohol) x2 drinks a day Sex and Gender Information Value Date Recorded Sex Assigned at Not on file Gender Identity Not on file Sexual Orientation Not on file Obstetrics History Last Filed Vital Signs Vital Sign Reading Time Taken Comments Blood Pressure 147/80 10/24/2022 3:43 PM TELEVISION PARTS TESTER Pulse 73 10/24/2022 3:43 PM TELEVISION PARTS TESTER Temperature 36.4 ??C (97.5 ??F) 10/24/2022 3:43 PM CS T Respiratory Rate 16 10/24/2022 3:43 PM TELEVISION PARTS TESTER Oxygen Saturation 99% 10/24/2022 3:43 PM TELEVISION PARTS TESTER Inhaled Oxygen Concentration - - Weight 134 kg (295 lb 8 oz) 10/24/2022 3:[address] Height 177.8 cm (5' 10) 07/22/2018 6:41 AM TELEVISION PARTS TESTER Body Mass Index 42.4 07/22/2018 6:41 AM TELEVISION PARTS TESTER Plan of Treatment Health Maintenance Due Date Last Done Comments HIV for age 15-65 1991 Hepatitis C screening for age 18-79 1994 Depression screening for age 12+ 08/30/2018 08/30/2017 BMI (ht and wt on same day) for age 18+ 07/01/2019 07/01/2018, 09/28/2017, 09/20/2017, Additional history exists Colonoscopy through age 75 2021 Lipids for age 45-75 2021 06/29/2008 COVID-19 vaccine series ( season) 2023 07/31/2021, 12/16/2020, 11/20/2020 Influenza for age 9-49 04/16/2023 8, 07/20/2017, 07/14/2016, Additional history exists Tetanus booster 05/02/2025 05/02/2015, [facility]16 [facility] 10/14/2005 Tdap Completed 05/02/2015, 10/14/2005 Pneumococcal series for age 6-64 Aged Out 07/20/2017 No longer eligible based on patient's age to complete this topic Medical Devices Implanted Type Area Migratory Worker Device Identifier Shelf Expiration Date Model / Serial / Lot Ancr Sut Nanotack Tt - [id number] Implanted:Qty: 3 on 07/22/2018 by Marvin Quiroz MD at [facility] Left: [employer] 06/26/2021 [id number] / / [id number] Advance Directives Latest Code Status on File Code Status Date Activated Date Inactivated Comments Full Code 07/22/2018 6:11 AM 07/22/2018 4:52 PM Code Status History Code Status Date Activated Date Inactivated Comments Full Code 07/03/2008 4:15 PM 07/04/2008 2:46 PM Care Teams Lapel Padder Blindstitch Relationship Specialty Start Date End Date Puneet Francois MD PCP - General 04/19/08
== END 2023-08-24 10:00 | disposition home or self-care (01) ==
PROVIDERS: PCP Family Medicine; Visit Provider Family Medicine
DX: Z00.00 Encounter for general adult medical examination without abnormal findings (principal); R53.83 Other fatigue; Z13.6 Encounter for screening for cardiovascular disorders
CPT/HCPCS: 80048; 80061

== ENCOUNTER 2023-08-26 08:22 | Outpatient (CLI) | payer BC, SELFPAY ==
--- OUTSIDE RECORDS SUMMARY | 2023-08-26 08:25 | XMS_ITS | Continuity of Care Document ---
Author Name Unknown Organization [facility] Address [address] [place] [address] Phone Care Team Providers Care Political Science Chair Name Role Phone Unavailable Unavailable Unavailable Medications [...] Date Provider Providers Copied on Encounter [facility], [address] [facility] [address], [place], [address], [place] tel:[phone] [employer] No Information Jul- 1 No Information [facility], [address] [facility] [address], [place], [address], tel:[phone] [employer] No Information 8 No Information Referring Provider: [facility] [place] [address] [place], [address]. tel:[phone] [facility], [address] [facility] [address], [place], [address], [place] tel:[phone] [facility] No Information Jul- 0 8 No Information Referring Provider: [facility] [place] [address] [place], [address]. tel:[phone] [facility], [address], [place], [address], [place] tel:[phone] [facility] [place] No Information 8 No Information Office consultation , moderate-hig h [facility], [address], [place], [address], [place] tel:[phone] [facility] [place] No Information 8 No Information Referring Provider: Puneet Francois, [facility] [address] [place], [address]. tel:[phone] Family History Family Member Type Diagnosis Age At Onset No Information Payers Payer name Insurance type Covered democrat ID Authorjerri spain(s) [facility] [id number] Social History Type Description Quantity Date Captured [...]
--- OUTSIDE RECORDS SUMMARY | 2023-08-26 08:25 | XMS_ITS | Clinical Summary ---
Author Name Unknown Organization [facility] Address [place], [place] [address] Care Team Providers Care Contour Grinder Name Role Phone Puneet Francois MD Primary [...] Comments Blood Pressure 147/80 10/24/2022 3:43 PM FUNDING COORDINATOR Pulse 73 10/24/2022 3:43 PM FUNDING COORDINATOR Temperature 36.4 ??C (97.5 ??F) 10/24/2022 3:43 PM CS T Respiratory Rate 16 10/24/2022 3:43 PM FUNDING COORDINATOR Oxygen Saturation 99% 10/24/2022 3:43 PM FUNDING COORDINATOR Inhaled Oxygen Concentration - - Weight 134 kg (295 lb 8 oz) 10/24/2022 3:[address] Height 177.8 cm (5' 10) 07/22/2018 6:41 AM FUNDING COORDINATOR Body Mass Index 42.4 07/22/2018 6:41 AM FUNDING COORDINATOR Plan of Treatment Health Maintenance Due Date [...] booster 05/02/2025 05/02/2015, [facility]16 [facility] 10/14/2005 Tdap Completed 05/02/2015, 10/14/2005 Pneumococcal series for age 6-64 Aged Out 07/20/2017 No longer eligible based on patient's age to complete this topic Medical Devices Implanted Type Area Certified Orthotist Device Identifier Shelf Expiration Date Model / Serial / Lot Ancr Sut Nanotack Tt - [id number] Implanted:Qty: 3 on 07/22/2018 by Marvin Quiroz MD at [facility] Left: Hip [employer] 06/26/2021 [id number] / / [id number] Advance Directives Latest Code Status on File Code Status Date Activated Date Inactivated Comments Full Code 07/22/2018 6:11 AM 07/22/2018 4:52 PM Code Status History Code Status Date Activated Date Inactivated Comments Full Code 07/03/2008 4:15 PM 07/04/2008 2:46 PM Care Teams Contour Grinder Relationship Specialty Start Date End Date Puneet Francois MD PCP - General 04/19/08
--- NOTE | 2023-08-26 09:57 | W.ANESCHARGE ---
Anesthesia Charges Start Date/Time Anesthesia Start Date: 08/26/23 Anesthesia Start Time: 09:18 Stop Date/Time Anesthesia Stop Date: 08/26/23 Anesthesia Stop Time: 09:54
--- NOTE | 2023-08-26 10:30 | W.ANESCHARGE ---
Anesthesia Charges Start Date/Time Anesthesia Start Date: 08/26/23 Anesthesia Start Time: 09:18 Stop Date/Time Anesthesia Stop Date: 08/26/23 Anesthesia Stop Time: 09:54
== END 2023-08-26 08:23 | disposition home or self-care (01) ==
LOC: OP CLINIC 08:23
PROVIDERS: PCP Family Medicine; Visit Provider Surgery
DX: Z12.11 Encounter for screening for malignant neoplasm of colon (principal); K63.5 Polyp of colon; Z80.0 Family history of malignant neoplasm of digestive organs
CPT/HCPCS: 00811; 45385; 88305; J2704

== ENCOUNTER 2025-02-19 09:02 | Outpatient (CLI) | payer BC, SELFPAY | END 2025-02-19 09:03 | disposition home or self-care (01) | PROVIDERS: PCP Family Medicine; Visit Provider Family Medicine | DX: Z13.6 Encounter for screening for cardiovascular disorders (principal); Z13.9 Encounter for screening, unspecified | CPT/HCPCS: 80048; 80061 ==